=== PATIENT | male | born 1975 | race Caucasian/White ===

== ENCOUNTER 2017-06-28 09:22 | Outpatient (CLI) | payer OTHER ==
[2017-06-28 10:51] LABS: Bilirubin Negative (Negative); Blood, Urine Negative (Negative); Clarity Clear (Clear); Glucose, Urine (Dipstick) Negative (Negative); Leukocyte Negative (Negative); Nitrite Negative (Negative); Protein, Urine (Dipstick) Negative (Neg-Trace); Specific Gravity, Urine 1.015 (1.005-1.030); Urobilinogen 0.2 mg/dL (0.2-1.0); pH, Urine 5.5 (5.0-9.0)
[2017-06-28 10:57] LABS: Bacteria/HPF None Seen HPF (None Seen); RBC/HPF None Seen HPF (0-3); Squamous Epithelial 0-3 HPF (0-3); WBC/HPF None Seen HPF (0-3)
[2017-06-28 11:07] LABS: #Basophils 0.1 thou/uL (0.0-0.2); #Eosinphils 0.2 thou/uL (0.0-0.7); #Lymphocytes 1.7 thou/uL (1.20-3.40); #Monocytes 0.8 thou/uL (0.11-0.59); #Neutrophils 7.7 thou/uL (1.40-6.50); %Basophils 0.5 % (0.0-1.0); %Eosinophils 2.2 % (0.0-10.0); %Lymphocytes 16.5 % (21.0-51.0); %Monocytes 7.5 % (0.0-10.0); %Neutrophils 73.3 % (42.0-75.0); Hemoglobin 16.5 g/dL (14.0-18.0); Mean Corpuscular HGB CONC 33.2 g/dL (32.0-36.0); Mean Corpuscular Hemoglobin 30.3 pg (27.0-31.0); Mean Corpuscular Volume 91.3 fl (80.0-94.0); Mean Platelet Volume 7.7 fL (7.4-10.4); Platelet Count 257 thou/uL (130-400); RBC Distribution Width 13.1 % (11.5-14.5); Red Blood Cell (RBC) Count 5.47 mill/uL (4.70-6.10); White Blood Cell (WBC) Count 10.6 thou/uL (4.8-10.8)
[2017-06-28 11:13] LABS: ALT (SGPT) 14 U/L (8-55); AST (SGOT) 16 U/L (5-34); Albumin 4.6 g/dL (3.5-5.0); Alkaline Phosphatase 100 U/L (40-150); Anion Gap 15 mmol/L (10-20); BUN (Urea Nitrogen) 13 mg/dL (8.9-20.6); Bilirubin, Total 0.9 mg/dL (0.2-1.2); Calc. Creatinine Clearance 0 mL/min (70-130); Calcium 9.8 mg/dL (7.8-10.44); Carbon Dioxide 27 mmol/L (22-29); Cardiac Risk 4.3 (Less than 4.5); Chloride 101 mmol/L (98-107); Cholesterol 171 mg/dl (< 200 Desired); Estimated GFR-MDRD 81; Globulin 2.7 g/dL (2.4-3.5); Glucose 77 mg/dL (70-105); HDL Cholesterol 40 mg/dL (>60 Neg Risk); LDL Cholesterol, Calculated 113 mg/dL; Potassium 4.8 mmol/L (3.5-5.1); Protein, Total 7.3 g/dL (6.0-8.3); Sodium 138 mmol/L (136-145); Triglycerides 90 mg/dL (Less than 150); Uric Acid 6.5 mg/dL (3.5-7.2)
== END 2017-06-28 09:23 ==
LOC: HPCALD 09:22
PROVIDERS: ATTEND Family Medicine
DX: Z13.6 Encounter for screening for cardiovascular disorders (principal); R03.0 Elevated blood-pressure reading, without diagnosis of hypertension; M25.50 Pain in unspecified joint; M54.5 Low back pain; Z87.39 Personal history of other diseases of the musculoskeletal system and connective tissue
CPT/HCPCS: 36415; 80053; 80061; 81001; 84443; 84550; 85025; 86038; 86200

== ENCOUNTER 2018-05-09 15:06 | Outpatient (CLI) | payer OTHER ==
--- NOTE | 2018-05-10 08:15 | RAD ---
LEFT RIBS: 05/09/2018 FINDINGS: Three views are submitted. One view suggests a nondisplaced fracture through the left 12th rib, in i ts mid portion. There is a line across the 11th rib on one view only, but this may actually be due t o overlap. There is no sign of pneumothorax or pleural effusion. IMPRESSION: Nondisplaced fracture of the left 12th rib. POS: HOME
== END 2018-05-09 15:07 | disposition home or self-care (01) ==
LOC: BURRAD 15:06
PROVIDERS: ATTEND Family Medicine
DX: R07.81 Pleurodynia (principal); S22.32XA Fracture of one rib, left side, initial encounter for closed fracture

== ENCOUNTER 2018-05-13 11:58 | Emergency (ER) | payer BC, OTHER ==
[2018-05-13] MEDS ORDERED: Ketorolac Tromethamine 30 MG/ML VIAL ONE (12:13)
[2018-05-13] MEDS ORDERED: Lorazepam 2 MG/ML VIAL ONE (12:13)
[2018-05-13 12:23] LABS: #Basophils 0.1 thou/uL (0.0-0.2); #Eosinphils 0.1 thou/uL (0.0-0.7); #Lymphocytes 1.4 thou/uL (1.20-3.40); #Monocytes 0.6 thou/uL (0.11-0.59); #Neutrophils 8.5 thou/uL (1.40-6.50); %Eosinophils 1.4 % (0.0-10.0); %Lymphocytes 12.6 % (21.0-51.0); %Monocytes 5.8 % (0.0-10.0); %Neutrophils 79.3 % (42.0-75.0); Hemoglobin 16.8 g/dL (14.0-18.0); Mean Corpuscular Hemoglobin 30.3 pg (27.0-31.0); Mean Corpuscular Volume 84.2 fL (78.0-98.0); Mean Platelet Volume 6.7 fL (7.4-10.4); Platelet Count 248 thou/uL (130-400); RBC Distribution Width 12.5 % (11.5-14.5); Red Blood Cell (RBC) Count 5.54 mill/uL (4.70-6.10); White Blood Cell (WBC) Count 10.7 thou/uL (4.8-10.8)
[2018-05-13 12:41] LABS: ALT (SGPT) 10 U/L (8-55); AST (SGOT) 13 U/L (5-34); Albumin 4.7 g/dL (3.5-5.0); Alkaline Phosphatase 83 U/L (40-150); Anion Gap 14 mmol/L (10-20); BUN (Urea Nitrogen) 13 mg/dL (8.9-20.6); Bilirubin, Total 0.8 mg/dL (0.2-1.2); Calc. Creatinine Clearance 0 mL/min (70-130); Calcium 9.9 mg/dL (7.8-10.44); Carbon Dioxide 24 mmol/L (22-29); Chloride 103 mmol/L (98-107); Estimated GFR-MDRD 77; Glucose 115 mg/dL (70-105); Potassium 4.2 mmol/L (3.5-5.1); Protein, Total 7.7 g/dL (6.0-8.3); Sodium 137 mmol/L (136-145)
--- NOTE | 2018-05-13 14:56 | CT ---
CT CHEST AND ABDOMEN AND PELVIS WITH CONTRAST: Date: 05/13/[address] of the chest, abdomen, and pelvis was performed for evaluation following trauma. Patient crenshaw d plain radiographs a week ago that showed at least a fracture of the left 12th rib and possibly the 11th. Axial slices were acquired after giving IV contrast, and coronal and sagittal reconstructions w ere done. FINDINGS: CT THORAX: The lungs are clear, except for some minor atelectasis in the left base posteriorly. No infiltrate wa s seen otherwise, nor was there any pneumothorax or substantial pleural fluid. There indeed are fract ures of the left 11th and 12th ribs posteriorly which are nondisplaced. No additional fractures were seen. IMPRESSION: Fractures of the left 11th and 12th ribs. CT ABDOMEN AND PELVIS: The liver, spleen, and pancreas appear intact with no sign of laceration or hematoma. The adrenal gla nds, kidneys, abdominal aorta, and gallbladder appear normal. The bowel shows no sign of obstruction, though there is abundant fecal material within it. There are no inflammatory changes around bowel. N o free air or free fluid seen. CT of the pelvis shows a large amount of stool in the rectal vault. No free fluid, evidence of bleedi ng, or other acute change seen. The bony pelvis and lumbar spine appear intact. IMPRESSION: 1. Nondisplaced fractures of the left 11th and 12th ribs. No evidence of splenic damage. 2. Mild constipation. POS: HOME
== END 2018-05-13 13:54 | disposition home or self-care (01) ==
LOC: BURERS 11:58
DX: S22.42XA Multiple fractures of ribs, left side, initial encounter for closed fracture (principal); K59.00 Constipation, unspecified; F17.210 Nicotine dependence, cigarettes, uncomplicated; W19.XXXA Unspecified fall, initial encounter
CPT/HCPCS: 71260; 74177; 80053; 84443; 85025; 96374; 96375; J1885; J2060

== ENCOUNTER 2020-04-04 09:14 | Outpatient (CLI) | payer BC ==
--- NOTE | 2020-04-04 17:51 | RAD ---
RIGHT ELBOW FOUR VIEWS: 04/04/20 No fracture or joint effusion was seen. The bony structures appear normal. IMPRESSION: No acute finding. POS: HOME
== END 2020-04-04 09:15 | disposition home or self-care (01) ==
LOC: BURRAD 09:14
PROVIDERS: ATTEND Family Medicine
DX: M25.521 Pain in right elbow (principal)

== ENCOUNTER 2024-03-20 07:28 | Emergency (ER) | payer OTHER ==
[2024-03-20 08:01] LABS: #Basophils 0.1 thou/uL (0.0-0.2); #Lymphocytes 0.4 thou/uL (1.20-3.40); #Neutrophils 10.3 thou/uL (1.40-6.50); %Basophils 0.6 % (0.0-1.0); %Eosinophils 0.1 % (0.0-10.0); %Lymphocytes 3.6 % (21.0-51.0); %Monocytes 8.3 % (0.0-10.0); %Neutrophils 87.4 % (42.0-75.0); Hematocrit 52.8 % (42.0-52.0); Hemoglobin 16.5 g/dL (14.0-18.0); Mean Corpuscular HGB CONC 31.3 g/dL (32.0-36.0); Mean Corpuscular Hemoglobin 28.7 pg (27.0-31.0); Mean Corpuscular Volume 91.8 fl (78.0-98.0); Mean Platelet Volume 7.7 fL (7.4-10.4); Platelet Count 211 10x3/uL (130-400); RBC Distribution Width 12.7 % (11.5-14.5); Red Blood Cell (RBC) Count 5.75 mill/uL (4.70-6.10); White Blood Cell (WBC) Count 11.8 10x3/uL (4.8-10.8)
[2024-03-20 08:19] LABS: ALT (SGPT) 21 U/L (8-55); AST (SGOT) 16 U/L (5-34); Albumin 4.7 g/dL (3.5-5.0); Alkaline Phosphatase 114 U/L (40-110); Anion Gap 16 mmol/L (10-20); BUN (Urea Nitrogen) 10 mg/dL (8.9-20.6); Bilirubin, Total 1.3 mg/dL (0.2-1.2); Calc. Creatinine Clearance 0 mL/min (70-130); Calcium 9.6 mg/dL (7.8-10.44); Carbon Dioxide 18 mmol/L (22-29); Chloride 104 mmol/L (98-107); Estimated GFR 90; Glucose 115 mg/dL (70-105); Lipase 25 U/L (8-78); Magnesium 1.5 mg/dL (1.6-2.6); Protein, Total 7.7 g/dL (6.0-8.3); Sodium 134 mmol/L (136-145)
[2024-03-20] MEDS ORDERED: Magnesium 2 GM/50 ML BAG (IN WATER) ONE (08:33)
[2024-03-20] MEDS ORDERED: Iopamidol 370 76% 100 ML VIAL ONE (09:56)
[2024-03-20] MEDS ORDERED: Morphine 4 MG/ML VIAL ONE (10:19)
[2024-03-20] MEDS ORDERED: Ondansetron PF 4 MG/2 ML Vial ONE (13:26)
== END 2024-03-20 09:30 | disposition home or self-care (01) ==
LOC: BURERS 07:28
DX: R10.32 Left lower quadrant pain (principal); R19.7 Diarrhea, unspecified; R11.2 Nausea with vomiting, unspecified; E83.42 Hypomagnesemia; M51.47 Schmorl's nodes, lumbosacral region; M51.37 Other intervertebral disc degeneration, lumbosacral region; F17.210 Nicotine dependence, cigarettes, uncomplicated
CPT/HCPCS: 36415; 74177; 80053; 83690; 83735; 85025; 96365; 96375; J2270; J2405; J3475; Q9967